=== PATIENT | male | born 1975 | race African-American/Black ===

== ENCOUNTER 2024-12-22 13:22 | Emergency (ER) | payer OTHER ==
[2024-12-22] MEDS ORDERED: Ketorolac Tromethamine 30 MG (1 mL) VIAL ONE (14:09)
== END 2024-12-22 14:40 | disposition home or self-care (01) ==
LOC: MADERS 13:22
DX: J06.9 Acute upper respiratory infection, unspecified (principal); I10 Essential (primary) hypertension; E11.9 Type 2 diabetes mellitus without complications; F17.210 Nicotine dependence, cigarettes, uncomplicated; Z79.899 Other long term (current) drug therapy
CPT/HCPCS: 87428; 96372; 99283; J1885

== ENCOUNTER 2025-03-13 23:36 | Emergency (ER) | payer OTHER ==
[2025-03-14] MEDS ORDERED: Ketorolac Tromethamine 30 MG (1 mL) VIAL ONE (00:30)
[2025-03-14] MEDS ORDERED: Benzonatate 100 MG CAP ONE (00:30)
[2025-03-14] MEDS ORDERED: Acetaminophen 500 MG TAB ONE (00:30)
== END 2025-03-14 00:53 | disposition home or self-care (01) ==
LOC: MADERS 23:36
DX: J06.9 Acute upper respiratory infection, unspecified (principal); I10 Essential (primary) hypertension; R05.1 Acute cough; B97.89 Other viral agents as the cause of diseases classified elsewhere; E11.9 Type 2 diabetes mellitus without complications; E66.9 Obesity, unspecified; F17.210 Nicotine dependence, cigarettes, uncomplicated; Z79.899 Other long term (current) drug therapy; Z91.148 Patient's other noncompliance with medication regimen for other reason
CPT/HCPCS: 87428; 96372; 99283; J1885